=== PATIENT | male | born 1990 | race Caucasian/White ===

== ENCOUNTER 2020-03-07 15:02 | Emergency (ER) | payer BC ==
[~2020-03-07] VITALS: Ht 177.8 cm; Wt 102.3 kg
[2020-03-07 15:29] VITALS: TEMP 98.5
[2020-03-07 16:17] LABS: BASO % 0.6 % (0.0-2.0); EOS # 0.1 (0.0-0.7); EOS % 1.1 % (0-4.0); GRAN # 3.9 (1.4-6.5); GRAN % 58.8 % (42.2-75.2); HEMOGLOBIN 12.3 g/dl (13.5-18.0); LYMPH # 1.8 (1.2-3.4); LYMPH % 27.1 % (20.0-51.0); MEAN CELL VOLUME 101 fl (80.0-100.0); MEAN CORPUSCULAR HEMOGLOBIN 35 pg (27.0-31.0); MEAN CORPUSCULAR HGB CONC 35 g/dl (33.0-37.0); MEAN PLATELET VOLUME 10.4 fl (7.4-10.4); MONO # 0.7 (0.1-0.6); MONO % 11.2 % (1.7-9.3); PLATELET COUNT 110 K/mm3 (130-400); RED BLOOD COUNT 3.51 M/mm3 (4.20-5.60)
[2020-03-07 16:20] LABS: HEMATOCRIT 35.4 % (42.0-52.0)
[2020-03-07 16:22] LABS: INR 1.2 (0.8-3.0); PROTHROMBIN TIME 13.1 SECONDS (9.7-12.8)
[2020-03-07 16:33] LABS: COLLECTION METHOD CLEAN CATCH
[2020-03-07 16:50] LABS: PH 5 (5-8); URINE APPEARANCE Clear; URINE COLOR Amber; URINE PROTEIN(semi-quant) 1+ (NEGATIVE)
[2020-03-07 16:51] LABS: URINE BILIRUBIN Positive (NEGATIVE); URINE BLOOD Negative (NEGATIVE); URINE CALCIUM OXALATE CRYSTAL Present /hpf; URINE GLUCOSE Negative (NEGATIVE); URINE KETONE Negative (NEGATIVE); URINE LEUKOCYTE ESTERASE Negative (NEGATIVE); URINE NITRATE Negative (NEGATIVE); URINE RBC 0-2 /hpf; URINE UROBILINOGEN >=4.0 mg/dL (NEGATIVE)
[2020-03-07 16:52] LABS: MUCOUS Present /lpf; URINE BACTERIA Rare /hpf
[2020-03-07 16:55] LABS: ALBUMIN 2.9 gm/dL (3.5-5.0); BILIRUBIN,TOTAL 7.4 mg/dL (0.0-1.0); C-REACTIVE PROTEIN 1.1 mg/dL (0.0-0.9); CALCIUM 8.1 mg/dL (8.4-10.2); POTASSIUM 3.2 mmol/L (3.4-5.0); TOTAL PROTEIN 6.9 gm/dL (6.4-8.2)
[2020-03-07 18:45] VITALS: BP 135/81; PULSE 106
== END 2020-03-07 18:45 | disposition home or self-care (01) ==
LOC: COL.ER 15:02
PROVIDERS: Family Medicine
DX: S20.212A Contusion of left front wall of thorax, initial encounter (principal); K70.10 Alcoholic hepatitis without ascites; X50.1XXA Overexertion from prolonged static or awkward postures, initial encounter
CPT/HCPCS: J2405; J7120; Q9967

== ENCOUNTER 2021-09-17 15:25 | Emergency (ER) | payer BC ==
[~2021-09-17] VITALS: Ht 175.3 cm; Wt 102.3 kg
[2021-09-17 17:41] LABS: BASO % 0.5 % (0.0-2.0); EOS # 0.1 K/mm3 (0.0-0.7); GRAN # 4.7 K/mm3 (1.4-6.5); GRAN % 54.1 % (42.2-75.2); HEMATOCRIT 45.4 % (42.0-52.0); HEMOGLOBIN 15.6 g/dl (13.5-18.0); LYMPH # 3.1 K/mm3 (1.2-3.4); LYMPH % 35.8 % (20.0-51.0); MEAN CELL VOLUME 100 fl (80.0-100.0); MEAN CORPUSCULAR HEMOGLOBIN 35 pg (27.0-31.0); MEAN CORPUSCULAR HGB CONC 34 g/dl (33.0-37.0); MEAN PLATELET VOLUME 9.4 fl (7.4-10.4); MONO # 0.7 K/mm3 (0.1-0.6); MONO % 8.3 % (1.7-9.3); PLATELET COUNT 230 K/mm3 (130-400); RED BLOOD COUNT 4.52 M/mm3 (4.20-5.60); REDCELL DISTRIBUTION WIDTH-CV 13.2 % (11.5-14.5)
[2021-09-17 18:21] LABS: ALBUMIN 4.1 gm/dL (3.5-5.0); CALCIUM 9.4 mg/dL (8.4-10.2); CREATININE, serum 0.91 mg/dL (0.72-1.25); POTASSIUM 3.5 mmol/L (3.5-4.5); TOTAL PROTEIN 7.9 gm/dL (6.2-8.1)
[2021-09-17 18:25] LABS: COLLECTION METHOD CLEAN CATCH
[2021-09-17 18:32] LABS: MUCOUS Present (NOT PRESENT); PH 5 (5-8); SQUAMOUS EPITHELIAL None Seen /hpf (0-10); URINE APPEARANCE Clear (CLEAR/HAZY); URINE BACTERIA None Seen (NONE SEEN); URINE BILIRUBIN Negative (NEGATIVE); URINE BLOOD 1+ (NEGATIVE); URINE COLOR Yellow (YELLOW); URINE GLUCOSE Negative (NEGATIVE); URINE KETONE Trace (NEGATIVE); URINE LEUKOCYTE ESTERASE Negative (NEGATIVE); URINE NITRATE Negative (NEGATIVE); URINE PROTEIN(semi-quant) Negative (NEGATIVE); URINE RBC 0-2 /hpf (0-2); URINE UROBILINOGEN Negative (NEGATIVE)
[2021-09-17 19:05] LABS: INR 1.2 (0.8-3.0); PROTHROMBIN TIME 13.3 SECONDS (9.7-12.8)
[2021-09-17 19:20] VITALS: BP 145/105; PULSE 100
== END 2021-09-17 19:25 | disposition home or self-care (01) ==
LOC: COL.ER 15:25
PROVIDERS: Physician Assistant
DX: F10.10 Alcohol abuse, uncomplicated (principal); E87.2 Acidosis; R74.01 Elevation of levels of liver transaminase levels; F17.210 Nicotine dependence, cigarettes, uncomplicated
CPT/HCPCS: J2405; J7030